=== PATIENT | male | born 1955 ===

== ENCOUNTER 2022-12-01 17:27 | Inpatient (IN) | payer MEDICARE ==
[2022-12-01 18:23] VITALS: BMI 24.3
[2022-12-01] MEDS ORDERED: Ondansetron PF 4 MG/2 ML Vial IVP PRN ×2 (18:30→18:31)
[2022-12-01] MEDS ORDERED: Sodium Chloride 0.9% 1,000 ML IV SCH (18:30)
[2022-12-01] MEDS ORDERED: Ondansetron ODT 4 MG TAB SL PRN (18:30)
[2022-12-01] MEDS ORDERED: Acetaminophen 325 MG TAB PO PRN (18:30)
[2022-12-01] MEDS ORDERED: Ondansetron ODT 4 MG TAB PO PRN (18:31)
[2022-12-01] MEDS ORDERED: Senokot S 8.6-50 MG TAB PO PRN (18:31)
[2022-12-01] MEDS ORDERED: Calcium Carbonate 500 MG ChewTAB PO PRN (18:31)
[2022-12-01] MEDS ORDERED: Albuterol 200 PUFF (6.7GM INHALER) INH PRN (18:38)
[2022-12-01] MEDS ORDERED: VANCOMYCIN - SSTI IVPB PRN (18:43)
[2022-12-01] MEDS ORDERED: Saccharomyces boulardii 250 MG CAP PO SCH ×2 (18:45→21:00)
[2022-12-01] MEDS ORDERED: Vancomycin (BATCH) 2 GM in Premix 1 BAG IVPB SCH (20:00)
[2022-12-01] MEDS ORDERED: Clindamycin/D5W 600 MG in Premix 1 BAG IVPB SCH (21:00)
[2022-12-01] MEDS ORDERED: Clindamycin/D5W 900 MG in Premix 1 BAG IVPB SCH (21:00)
[2022-12-01] MEDS: Gabapentin 100 MG CAP PO SCH (21:01)
[2022-12-01] MEDS: Montelukast Sodium 10 mg Tablet PO SCH (21:01)
[2022-12-02 06:34] LABS: #Basophils 0.1 thou/uL (0.0-0.2); #Eosinphils 0.3 thou/uL (0.0-0.7); #Neutrophils 5.7 thou/uL (1.40-6.50); %Basophils 0.7 % (0.0-1.0); %Eosinophils 2.9 % (0.0-10.0); %Lymphocytes 16.4 % (21.0-51.0); %Monocytes 11.9 % (0.0-10.0); %Neutrophils 67.5 % (42.0-75.0); Hematocrit 38.3 % (42.0-52.0); Hemoglobin 13.3 g/dL (14.0-18.0); Mean Corpuscular HGB CONC 34.7 g/dL (32.0-36.0); Mean Corpuscular Hemoglobin 30.5 pg (27.0-31.0); Mean Corpuscular Volume 87.8 fl (78.0-98.0); Mean Platelet Volume 11.1 fL (7.4-10.4); Platelet Count 221 10x3/uL (130-400); RBC Distribution Width 12.7 % (11.5-14.5); Red Blood Cell (RBC) Count 4.36 mill/uL (4.70-6.10); White Blood Cell (WBC) Count 8.5 10x3/uL (4.8-10.8)
[2022-12-02 07:34] LABS: Anion Gap 13 mmol/L (10-20); BUN (Urea Nitrogen) 39 mg/dL (8.4-25.7); Calc. Creatinine Clearance 64 mL/min (70-130); Calcium 9.3 mg/dL (7.8-10.44); Carbon Dioxide 21 mmol/L (23-31); Chloride 104 mmol/L (98-107); Estimated GFR 59; Glucose 82 mg/dL (80-115); Potassium 4.3 mmol/L (3.5-5.1); Sodium 134 mmol/L (136-145)
[2022-12-02] MEDS: Saccharomyces boulardii 250 MG CAP PO SCH (09:06)
[2022-12-02] MEDS: Gabapentin 100 MG CAP PO SCH ×3 (09:06→21:25)
[2022-12-02] MEDS: Diclofenac 25 MG TABDR...ER PO SCH (09:07)
[2022-12-02] MEDS: Atorvastatin Calcium 10 MG TAB PO SCH (09:08)
[2022-12-02] MEDS: Amlodipine 10 MG TAB PO SCH (09:08)
[2022-12-02] MEDS: Allopurinol 300 MG TAB PO SCH (09:08)
[2022-12-02] MEDS: Lisinopril/Hydrochlorothiazide 20/25 mg Tablet PO SCH (09:09)
[2022-12-02] MEDS: valACYclovir 500 MG TAB PO SCH ×2 (14:51→21:26)
[2022-12-02] MEDS: cefTRIAXone\\ROCEPHIN 1 GM in Sodium Chloride 0.9% 100 ML IVPB SCH (14:51)
[2022-12-02] MEDS ORDERED: Vancomycin (BATCH) 1.5 GM in Premix 1 BAG IVPB SCH (20:00)
[2022-12-02] MEDS: Montelukast Sodium 10 mg Tablet PO SCH (21:26)
[2022-12-02] MEDS: Acetaminophen 325 MG TAB PO PRN (21:27)
[2022-12-03 08:12] LABS: #Basophils 0.1 thou/uL (0.0-0.2); #Eosinphils 0.3 thou/uL (0.0-0.7); #Monocytes 0.9 thou/uL (0.11-0.59); #Neutrophils 5.1 thou/uL (1.40-6.50); %Basophils 0.9 % (0.0-1.0); %Eosinophils 3.6 % (0.0-10.0); %Lymphocytes 16.9 % (21.0-51.0); Mean Corpuscular Hemoglobin 30.9 pg (27.0-31.0); Mean Corpuscular Volume 88.3 fl (78.0-98.0); Mean Platelet Volume 11.1 fL (7.4-10.4); Platelet Count 243 10x3/uL (130-400); RBC Distribution Width 12.8 % (11.5-14.5); Red Blood Cell (RBC) Count 4.53 mill/uL (4.70-6.10); White Blood Cell (WBC) Count 7.7 10x3/uL (4.8-10.8)
[2022-12-03 08:32] LABS: Anion Gap 16 mmol/L (10-20); BUN (Urea Nitrogen) 31 mg/dL (8.4-25.7); Calc. Creatinine Clearance 68 mL/min (70-130); Calcium 9.4 mg/dL (7.8-10.44); Carbon Dioxide 19 mmol/L (23-31); Chloride 105 mmol/L (98-107); Estimated GFR 65; Glucose 94 mg/dL (80-115); Potassium 4.4 mmol/L (3.5-5.1); Sodium 136 mmol/L (136-145)
[2022-12-03] MEDS: Saccharomyces boulardii 250 MG CAP PO SCH (08:54)
[2022-12-03] MEDS: valACYclovir 500 MG TAB PO SCH ×3 (08:54→21:23)
[2022-12-03] MEDS: Allopurinol 300 MG TAB PO SCH (09:03)
[2022-12-03] MEDS: Amlodipine 10 MG TAB PO SCH (09:03)
[2022-12-03] MEDS: Gabapentin 100 MG CAP PO SCH ×3 (09:04→21:22)
[2022-12-03] MEDS: Atorvastatin Calcium 10 MG TAB PO SCH (09:04)
[2022-12-03] MEDS: Diclofenac 25 MG TABDR...ER PO SCH (09:04)
[2022-12-03] MEDS: Lisinopril/Hydrochlorothiazide 20/25 mg Tablet PO SCH (09:05)
[2022-12-03] MEDS: Montelukast Sodium 10 mg Tablet PO SCH ×2 (09:06→21:23)
[2022-12-03] MEDS: cefTRIAXone\\ROCEPHIN 1 GM in Sodium Chloride 0.9% 100 ML IVPB SCH (14:36)
[2022-12-03] MEDS ORDERED: diphenhydrAMINE 50 MG/ML VIAL IVP SCH (19:45)
[2022-12-03] MEDS: Acetaminophen 325 MG TAB PO PRN (21:21)
[2022-12-03] MEDS: Mupirocin 2% Ointment 22 GM Tube TOP SCH (21:23)
[2022-12-04 09:02] VITALS: BP 134/84; TEMP 98.3
[2022-12-04 10:15] LABS: #Basophils 0.1 thou/uL (0.0-0.2); #Eosinphils 0.3 thou/uL (0.0-0.7); #Monocytes 0.9 thou/uL (0.11-0.59); #Neutrophils 5.8 thou/uL (1.40-6.50); %Basophils 0.7 % (0.0-1.0); %Eosinophils 3.2 % (0.0-10.0); %Lymphocytes 13.4 % (21.0-51.0); %Monocytes 10.8 % (0.0-10.0); %Neutrophils 71.2 % (42.0-75.0); Hematocrit 40.4 % (42.0-52.0); Hemoglobin 13.9 g/dL (14.0-18.0); Mean Corpuscular HGB CONC 34.4 g/dL (32.0-36.0); Mean Corpuscular Hemoglobin 30.3 pg (27.0-31.0); Mean Corpuscular Volume 88.2 fl (78.0-98.0); Mean Platelet Volume 10.6 fL (7.4-10.4); Platelet Count 237 10x3/uL (130-400); RBC Distribution Width 12.8 % (11.5-14.5); Red Blood Cell (RBC) Count 4.58 mill/uL (4.70-6.10); White Blood Cell (WBC) Count 8.2 10x3/uL (4.8-10.8)
[2022-12-04] MEDS: Saccharomyces boulardii 250 MG CAP PO SCH (10:33)
[2022-12-04] MEDS: Mupirocin 2% Ointment 22 GM Tube TOP SCH (10:33)
[2022-12-04] MEDS: valACYclovir 500 MG TAB PO SCH ×2 (10:33→15:29)
[2022-12-04] MEDS: Gabapentin 100 MG CAP PO SCH ×2 (10:34→15:29)
[2022-12-04 10:41] LABS: Anion Gap 15 mmol/L (10-20); BUN (Urea Nitrogen) 28 mg/dL (8.4-25.7); Calc. Creatinine Clearance 64 mL/min (70-130); Calcium 9.7 mg/dL (7.8-10.44); Carbon Dioxide 22 mmol/L (23-31); Chloride 104 mmol/L (98-107); Estimated GFR 59; Glucose 116 mg/dL (80-115); Potassium 4.5 mmol/L (3.5-5.1); Sodium 136 mmol/L (136-145)
[2022-12-04] MEDS: Allopurinol 300 MG TAB PO SCH (10:59)
[2022-12-04] MEDS: Amlodipine 10 MG TAB PO SCH (11:00)
[2022-12-04] MEDS: Atorvastatin Calcium 10 MG TAB PO SCH (11:00)
[2022-12-04] MEDS: Diclofenac 25 MG TABDR...ER PO SCH (11:00)
[2022-12-04] MEDS: Lisinopril/Hydrochlorothiazide 20/25 mg Tablet PO SCH (11:01)
[2022-12-04] MEDS: cefTRIAXone\\ROCEPHIN 1 GM in Sodium Chloride 0.9% 100 ML IVPB SCH (15:28)
== END 2022-12-04 17:32 | disposition home or self-care (01) | DRG 596 ==
LOC: INTOOBSV 17:27 → T4-A 17:27 → OBSVTOIN 12-02 17:07
PROVIDERS: ADMIT Family Medicine; ATTEND Internal Medicine
DX: B02.9 Zoster without complications (principal); L03.211 Cellulitis of face; N17.9 Acute kidney failure, unspecified; J44.9 Chronic obstructive pulmonary disease, unspecified; M10.9 Gout, unspecified; M19.90 Unspecified osteoarthritis, unspecified site; I10 Essential (primary) hypertension; E78.5 Hyperlipidemia, unspecified; L98.499 Non-pressure chronic ulcer of skin of other sites with unspecified severity; R23.8 Other skin changes; K21.9 Gastro-esophageal reflux disease without esophagitis; Z79.51 Long term (current) use of inhaled steroids; Z79.899 Other long term (current) drug therapy
CPT/HCPCS: 36415; 80048; 85025; 96374; 96375; G0378; J0696; J1200; J3370; J3490; J7050